=== PATIENT | female | born 1950 | race African-American/Black ===

== ENCOUNTER → 2018-06-08 | Outpatient (CLI) | payer OTHER ==
--- NOTE | 2018-06-08 13:34 | Diagnostic Imaging Report ---
Exam: Left and right hip 2 views each History: Pain Comparison: None. Findings: No fracture or malalignment. Acetabular over coverage. Mild degenerative arthrosis of the hips. Soft tissue calcification of the right thigh. Scattered surgical clips. Impression: No acute osseous abnormality Mild degenerative arthrosis of the hips Signed by: Dr. Silvano German M.D. on 06/08/2018 1:30 PM
--- NOTE | 2018-06-08 13:36 | Diagnostic Imaging Report ---
Exam: Sacrococcyx 2 views History: Pain Comparison: None. Findings: No fracture or malalignment. No abnormal soft tissue calcification or soft tissue defect. Scattered surgical clips. Impression: No acute osseous abnormality Signed by: Dr. Silvano German M.D. on 06/08/2018 1:33 PM
== END ==
LOC: RAD 10:57
PROVIDERS: ATTEND Emergency Medicine
DX: M25.552 Pain in left hip (principal); M25.551 Pain in right hip; M53.3 Sacrococcygeal disorders, not elsewhere classified
CPT/HCPCS: 72220; 73521

== ENCOUNTER → 2018-10-21 | Outpatient (CLI) | payer OTHER ==
--- NOTE | 2018-10-21 10:04 | Diagnostic Imaging Report ---
TECHNIQUE: Magnetic resonance imaging of the right and left HIP was performed WITHOUT injected contrast. HISTORY: Pain COMPARISON: None available. FINDINGS: Bone: No bone marrow edema or fracture. Heterogeneous right marrow throughout the pelvis and proximal femurs. No osteonecrosis. 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 No detached tear. Articular Cartilage: Partial-thickness cartilage loss Left Femoroacetabular Joint: Acetabular labrum: Fraying of the labrum. No detached tear. Articular Cartilage: Partial-thickness cartilage loss Muscle and tendons: Iliopsoas tendons intact. Gluteal tendon insertion on the greater trochanter intact. Hamstring origin intact. Soft tissues: Otherwise unremarkable. IMPRESSION: No osteonecrosis of the femoral heads. Mild degenerative arthrosis of the hips. Signed by: Dr. Silvano German M.D. on 10/21/2018 10:01 AM
== END ==
LOC: MRI 08:03
PROVIDERS: ATTEND Emergency Medicine
DX: M25.552 Pain in left hip (principal); M25.551 Pain in right hip; M87.052 Idiopathic aseptic necrosis of left femur; M87.051 Idiopathic aseptic necrosis of right femur

== ENCOUNTER → 2022-04-25 | Outpatient (CLI) | payer MEDICARE | LOC: RAD 12:19 | PROVIDERS: ATTEND Emergency Medicine | DX: M25.552 Pain in left hip (principal); M25.551 Pain in right hip; M54.50 Low back pain, unspecified | CPT/HCPCS: 72110; 73522 ==

== ENCOUNTER → 2022-08-19 | Outpatient (CLI) | payer MEDICARE, OTHER | LOC: RAD 15:01 | PROVIDERS: ATTEND Emergency Medicine | DX: M25.551 Pain in right hip (principal); M25.552 Pain in left hip | CPT/HCPCS: 73521 ==

== ENCOUNTER → 2023-04-23 | Outpatient (REF) | payer MEDICARE, OTHER | LOC: MRI 07:40 | PROVIDERS: ATTEND Emergency Medicine | DX: M54.2 Cervicalgia (principal); R51.9 Headache, unspecified | CPT/HCPCS: 70450; 72125; 72141 ==